=== PATIENT | female | born 1960 | race African-American/Black ===

== ENCOUNTER → 2025-08-05 | Outpatient (REF) | payer MEDICARE ==
[~2025-08-05] MED LIST: ATORVASTATIN CA20 MG PO; BUPROPION HCL75 MG PO; CARVEDILOL3.125 MG PO; CETIRIZINE HCL10 MG; DIVALPROEX SOD500 MG; FARXIGA10 MG; FUROSEMIDE40 MG PO; HYDRALAZINE HC100 MG PO; SEROQUEL100 MG PO; VITAMIN D; ZETIA10 MG PO
[2025-08-05 09:34] LABS: BASOPHILS % 0.5 % (0.0-1.0); EOSINOPHILS % 2.1 % (0.0-6.0); LYMPHOCYTES % 30.0 % (18.0-39.1); MONOCYTES % 7.1 % (4.4-11.3); NEUTROPHILS % 60.2 % (38.7-80.0); RED CELL DISTRIBUTION WIDTH 16.9 % (11.7-14.4)
== END ==
LOC: RAD 08:00 → EDSTATUS 08-14 11:00
PROVIDERS: ATTEND Internal Medicine Gastroenterology
DX: Z12.11 Encounter for screening for malignant neoplasm of colon (principal); Z01.818 Encounter for other preprocedural examination; E11.9 Type 2 diabetes mellitus without complications; Z68.34 Body mass index [BMI] 34.0-34.9, adult; Z71.3 Dietary counseling and surveillance; F17.200 Nicotine dependence, unspecified, uncomplicated
CPT/HCPCS: 36415; 85025; 93005